=== PATIENT | female | born 1990 | race Two or more races ===

== ENCOUNTER → 2019-10-31 | Outpatient (CLI) | payer OTHER | END | disposition home or self-care (01) | LOC: PRENATAL 15:00 | PROVIDERS: ATTEND Obstetrics & Gynecology | DX: O35.3XX1 Maternal care for (suspected) damage to fetus from viral disease in mother, fetus 1 (principal); Z36.89 Encounter for other specified antenatal screening; O34.211 Maternal care for low transverse scar from previous cesarean delivery ==

== ENCOUNTER 2020-02-29 09:30 | Inpatient (IN) | payer OTHER ==
[~2020-02-29] VITALS: Ht 160 cm; Wt 3.2 kg
[2020-02-29] MEDS ORDERED: ATABEX DHA 200200 MG PO (10:57)
[2020-03-07] MEDS ORDERED: ATABEX OB TABL1 EACH (08:51)
[2020-03-10] MEDS ORDERED: PERCOCET 5-3251 EACH PO (09:41)
== END 2020-03-10 10:16 | DRG 785 ==
LOC: O/R 03-07 07:23 → SURG-SUITE 03-07 07:23 → LDR 03-07 09:30 → SURG-SUITE 03-07 13:28
PROVIDERS: ADMIT Obstetrics & Gynecology; ATTEND Obstetrics & Gynecology
PROC: 0UL70ZZ Occlusion of Bilateral Fallopian Tubes, Open Approach (ICD-10-PCS; 2020-03-07)
PROC: 4A0HXFZ Measurement of Products of Conception, Cardiac Rhythm, External Approach (ICD-10-PCS; 2020-03-07)
PROC: 10D00Z1 Extraction of Products of Conception, Low, Open Approach (ICD-10-PCS; principal; 2020-03-07 10:15)
DX: O82 Encounter for cesarean delivery without indication (principal); Z3A.39 39 weeks gestation of pregnancy; Z37.0 Single live birth; Z30.2 Encounter for sterilization